=== PATIENT | male | born 1950 | race Caucasian/White ===

== ENCOUNTER 2017-01-25 01:14 | Day surgery (SDC) | payer MEDICARE, OTHER ==
[~2017-01-25] VITALS: Ht 177.8 cm; Wt 80.0 kg
[2017-01-25 01:17] VITALS: BP 185/104; PULSE 120; RESP 18; TEMP 97.6; O2SAT 100
[2017-01-25] MEDS ORDERED: SODIUM CHLORIDE 0.9% FLUSH 10 ML FLUSH IV FLUSH PRN (01:45)
[2017-01-25] MEDS ORDERED: GLUCAGON 1 MG/ML VIAL IV PUSH ONE (01:45)
--- NOTE | 2017-01-25 01:45 | PD ---
HPI Chief Complaint: Foreign Body Time Seen by Provider: 01:31 Travel History International Travel<30 days: No Contact w/Intl Traveler<30days: No Traveled to known affect area: No History of Present Illness HPI Patient is a 66-year-old male who about 8:00 tonight was eating a rib I, states that he didn't think he chewed its all the way through when he swallowed it got stuck, he states his this is happened to him before and it resolved spontaneously. Patient states been several years since he had a colonoscopy and endoscopy. Denies any chest pain shortness of breath abdominal pain nausea vomiting, he states anytime he tries to drink fluids states over about 5 seconds and then comes right back up. He states he started to get sore from vomiting up his own saliva as well. Symptoms since 8:00, constant, context as above, associated signs symptoms as above. PFSH Past Medical History Medical History: Denies Significant Hx Tetanus Vaccination: Unknown Influenza Vaccination: No Past Surgical History Surgical History: No Previous Surgery Social History Alcohol Use: No Tobacco Use: No Substance Use: No Allergies-Medications (Allergen,Severity, Reaction): Coded Allergies: No Known Drug Allergies (Verified Allergy, Unknown, 01/25/17) Reported Meds & Prescriptions Reported Meds & Active Scripts Active No Active Prescriptions or Reported Medications Review of Systems Except as stated in HPI: all other systems reviewed are Neg Physical Exam Narrative GENERAL: Well-developed well-nourished, comfortable but intermittently retching. SKIN: Focused skin assessment warm/dry. HEAD: Atraumatic. Normocephalic. EYES: Pupils equal and round. No scleral icterus. No injection or drainage. ENT: No nasal bleeding or discharge. Mucous membranes pink and moist. NECK: Trachea midline. No JVD. CARDIOVASCULAR: Regular rate and rhythm. No murmur appreciated. RESPIRATORY: No accessory muscle use. Clear to auscultation. Breath sounds equal bilaterally. GASTROINTESTINAL: Abdomen soft, non-tender, nondistended. Hepatic and splenic margins not palpable. MUSCULOSKELETAL: No obvious deformities. No clubbing. No cyanosis. No edema. NEUROLOGICAL: Awake and alert. No obvious cranial nerve deficits. Motor grossly within normal limits. Normal speech. PSYCHIATRIC: Appropriate mood and affect; insight and judgment normal. Data Data Last Documented VS Vital Signs Date Time Temp Pulse Resp B/P (MAP) Pulse Ox O2 Delivery O2 Flow Rate FiO2 11/25/17 03:45 72 20 148/93 (111) 95 Room Air 01/25/17 01:17 97.6 Orders Orders Glucagon Inj (Glucagon Inj) (01/25/17 01:45) Basic Metabolic Panel (Bmp) (01/25/17 01:31) Complete Blood Count With Diff (01/25/17 01:31) Iv Access Insert/Monitor (01/25/17 01:31) Ecg Monitoring (01/25/17 01:31) Oximetry (01/25/17 01:31) Sodium Chloride 0.9% Flush (Ns Flush) (01/25/17 01:45) Electrocardiogram (01/25/17 01:31) Chest, Single Ap (01/25/17 01:31) Glucagon Inj (Glucagon Inj) (01/25/17 03:15) Orphenadrine Inj (Norflex Inj) (01/25/17 03:15) Admit Order (Ed Use Only) (01/25/17 ) Labs Laboratory Tests Test 01/25/17 01:45 White Blood Count 11.7 TH/MM3 Red Blood Count 5.17 MIL/MM3 Hemoglobin 16.1 GM/DL Hematocrit 46.4 % Mean Corpuscular Volume 89.8 FL Mean Corpuscular Hemoglobin 31.1 PG Mean Corpuscular Hemoglobin Concent 34.6 % Red Cell Distribution Width 12.7 % Platelet Count 218 TH/MM3 Mean Platelet Volume 8.1 FL Neutrophils (%) (Auto) 84.1 % Lymphocytes (%) (Auto) 9.3 % Monocytes (%) (Auto) 4.7 % Eosinophils (%) (Auto) 1.3 % Basophils (%) (Auto) 0.6 % Neutrophils # (Auto) 9.8 TH/MM3 Lymphocytes # (Auto) 1.1 TH/MM3 Monocytes # (Auto) 0.5 TH/MM3 Eosinophils # (Auto) 0.1 TH/MM3 Basophils # (Auto) 0.1 TH/MM3 CBC Comment DIFF FINAL Differential Comment Blood Urea Nitrogen 19 MG/DL Creatinine 1.21 MG/DL Random Glucose 165 MG/DL Calcium Level 9.1 MG/DL Sodium Level 138 MEQ/L Potassium Level 4.0 MEQ/L Chloride Level 103 MEQ/L Carbon Dioxide Level 27.7 MEQ/L Anion Gap 7 MEQ/L Estimat Glomerular Filtration Rate 60 ML/MIN MDM Medical Decision Making Medical Screen Exam Complete: Yes Emergency Medical Condition: Yes Differential Diagnosis Food bolus impaction, achalasia, esophageal web. Narrative Course Patient roomed emerged Department 2 doses of IV glucagon were given as well as Norflex and still the patient is unable to tolerate by mouth liquids. Patient discussed with Drs. Hall for endoscopy. Diagnosis Primary Impression: Impacted foreign body in esophagus Qualified Codes: T18.108A - Unspecified foreign body in esophagus causing other injury, initial encounter Scripts No Active Prescriptions or Reported Meds Condition: Robert Reddy MD Jan 25, 2017 01:45
--- NOTE | 2017-01-25 02:08 | RADRPT ---
EXAM DATE/TIME: 01/25/2017 01:41 [facility] COMPARISON: No previous studies available for comparison. INDICATIONS : Possible foreign body. Food stuck in esophagus. MEDICAL HISTORY : None. SURGICAL HISTORY : None. ENCOUNTER: Initial ACUITY: 1 day PAIN SCORE: 0/10 LOCATION: Bilateral chest FINDINGS: A single view of the chest demonstrates the lungs to be symmetrically aerated without evidence of mas s, infiltrate or effusion. The cardiomediastinal contours are unremarkable. Osseous structures are intact. CONCLUSION: No acute disease. Steve So MD on January 25, 2017 at 2:06 Board Certified Radiologist. This report was verified electronically.
[2017-01-25 02:11] LABS: AUTOMATED NEUTROPHIL # 9.8 TH/MM3 (1.8-7.7); BASOPHIL # 0.1 TH/MM3 (0-0.2); BASOPHIL % 0.6 % (0.0-2.0); EOSINOPHIL # 0.1 TH/MM3 (0-0.4); EOSINOPHIL % 1.3 % (0.0-4.0); HEMATOCRIT 46.4 % (39.0-51.0); HEMO FLAGS DIFF FINAL; LYMPH % 9.3 % (9.0-44.0); LYMPHOCYTE # 1.1 TH/MM3 (1.0-4.8); MEAN CELL VOLUME 89.8 FL (80.0-100.0); MEAN CORPUSCULAR HEMOGLOBIN 31.1 PG (27.0-34.0); MEAN CORPUSCULAR HGB CONC 34.6 % (32.0-36.0); MONO % 4.7 % (0.0-8.0); NEUT % 84.1 % (16.0-70.0); PLATELET COUNT 218 TH/MM3 (150-450); RED BLOOD COUNT 5.17 MIL/MM3 (4.50-5.90); RED CELL DISTRIBUTION WIDTH 12.7 % (11.6-17.2); WHITE BLOOD COUNT 11.7 TH/MM3 (4.0-11.0)
[2017-01-25 02:13] VITALS: BP 184/103; PULSE 96; RESP 20; O2SAT 96
[2017-01-25 02:23] LABS: BICARBONATE 27.7 MEQ/L (21.0-32.0)
[2017-01-25] MEDS ORDERED: GLUCAGON 1 MG/ML VIAL IM ONE (03:15)
[2017-01-25] MEDS ORDERED: ORPHENADRINE INJ 60 MG/2 ML AMP IM ONE (03:15)
[2017-01-25 03:45] VITALS: BP 148/93; PULSE 72; RESP 20; O2SAT 95
[2017-01-25 06:14] VITALS: BP 160/97; PULSE 81; RESP 18; O2SAT 99
--- NOTE | 2017-01-25 10:03 | GIPROC ---
[facility] [address] [facility]. [facility], [address] EGD PROCEDURE REPORT EXAM DATE: 01/25/2017 PATIENT NAME: Jose Eduardo Bragg MR #: [id number] BIRTHDATE: 1950 ATTENDING: Leonides Hall MD ORDER #: [id number] SCIENTIFIC MANAGER: Analia Mcgee and Rashawn Mills STATUS: outpatient INDICATIONS: The patient is a 66 yr old male here for an EGD due to dysphagia and foreign body removal from esophagus PROCEDURE PERFORMED: EGD w/ fb removal MEDICATIONS: None and Per Anesthesia. TOPICAL ANESTHETIC: CONSENT: The patient understands the risks and benefits of the procedure and understands that these risks include, but are not limited to: sedation, allergic reaction, infection, perforation and/or bleeding. Alternative means of evaluation and treatment include, among others: physical exam, x-rays, and/or surgical intervention. The patient elects to proceed with this endoscopic procedure. medical equipment was checked for proper function. Hand hygiene and appropriate measures for infection prevention was taken. After the risks, benefits and alternatives of the procedure were thoroughly explained, Informed consent was verified, confirmed and timeout was successfully executed by the treatment team. The patient was anesthetized with topical anesthesia and the Pentax [id number] endoscope was introduced through the mouth and advanced to the gastroesophageal junction. The gastroscope was then slowly withdrawn and removed. ESOPHAGUS: LARGE AMOUNT OF IMPACTED MEAT AT THE DISTAL ESOPHAGUS. uNABLE TO PUSH INTO THE STOMACH. OVERTUBE PLACED AND REMOVED PIECEMEAL THROUGHTHE MOUTH. SIGIFICANT ESOPHAGITIS AND NARROWING OF THE DISTAL ESOPHAGUS. ADVERSE EVENTS: There were no complications. IMPRESSIONS: LARGE AMOUNT OF IMPACTED MEAT AT THE DISTAL ESOPHAGUS. uNABLE TO PUSH INTO THE STOMACH. OVERTUBE PLACED AND REMOVED PIECEMEAL THROUGHTHE MOUTH. SIGIFICANT ESOPHAGITIS AND NARROWING OF THE DISTAL ESOPHAGUS RECOMMENDATIONS: 1. Anti-reflux regimen 2. Start PPI PATIENT CONDITION: stable DISPOSITION: Home REPEAT EXAM: Return 1 week EGD with dilatation Leonides Hall MD eSigned: Leonides Hall MD 01/25/2017 10:02 AM cc:
--- NOTE | 2017-01-25 10:33 | MB ---
cc: Layne DATE OF CONSULTATION: 01/25/2017 PHYSICIAN: Dr. Leyva. REASON FOR CONSULTATION: Esophageal foreign body, acute dysphagia. HISTORY: Mr. Bragg is a 66-year-old gentleman who was eating at 08:00 p.m. rib steak at a local restaurant. He felt that something got stuck in the lower esophagus. That has not resolved since then he said he had a similar episode few years ago but that resolved spontaneously. He has had an endoscopy many years ago but he is unclear about the findings. Since this occurrence he has been unable to swallow his saliva. Finally decided to come into the hospital. PAST MEDICAL HISTORY None given. PAST SURGICAL HISTORY None given except for esophagogastroduodenoscopy, colonoscopy many years ago. SOCIAL HISTORY No tobacco, no alcohol. ALLERGIES None documented MEDICATIONS On admission none given. REVIEW OF SYSTEMS The patient has dysphagia secondary to esophageal foreign body. PHYSICAL EXAMINATION: IN GENERAL: Physical examination reveals a well-nourished man in no apparent distress. VITAL SIGNS: Vital signs: Stable. HEAD/NECK: Head and neck examination anicteric sclerae. CHEST: Bilateral air entry with rales. ABDOMEN: Abdomen is soft, nontender. No hepatosplenomegaly. Bowel sounds are present. CENTRAL NERVOUS SYSTEM: Exam is nonfocal. RECTUM: The rectal exam is deferred at this time. LABORATORY FINDINGS: labs reveal a white cell count of 11.7, hemoglobin 16, creatinine of 1.21 IMPRESSION Esophageal foreign body. RECOMMENDATIONS: 1. Keep n.p.o. at this time. 2. Esophagogastroduodenoscopy with EGD with general anesthesia recommended further recommendations to follow. Thank you for this referral. MD TONI Jose/gulshan /9:37 AM /10:23 AM
[2017-01-25] MEDS ORDERED: DO NOT ADM ANY ANTICOAGULANT DRUGS PRN (10:45)
[2017-01-25 11:00] VITALS: BP 138/76; PULSE 81; RESP 18; O2SAT 99
[2017-01-25] MEDS ORDERED: DEXAMETHASONE SOD PHOS 4 MG/ML VIAL IV ONE (12:00)
[2017-01-25] MEDS ORDERED: SUCCINYLCHOLINE CHLORIDE 100 MG/5 ML SYRINGE IV PUSH ONE (12:00)
[2017-01-25] MEDS ORDERED: ONDANSETRON HCL 4 MG/2 ML VIAL IV ONE (12:00)
[2017-01-25] MEDS ORDERED: LABETALOL HCL 100 MG/20 ML VIAL IV ONE (12:00)
[2017-01-25] MEDS ORDERED: PROPOFOL 200 MG/20 ML AMP IV ONE (12:00)
[2017-01-25] MEDS ORDERED: LIDOCAINE HCL 1% PF 5 ML SYRINGE OTHER ONE (12:00)
--- NOTE | 2017-01-25 14:35 | EKG ---
Date Performed: 01/25/2017 Time Performed: 02:20:12 PTAGE: 66 years EKG: Sinus rhythm PATTERN CONSISTENT WITH PULMONARY DISEASE INCOMPLETE RIGHT BUNDLE BRANCH BLOCK LEFT ANTERIOR FASCICU LAR BLOCK SEPTAL MYOCARDIAL INFARCTION ABNORMAL ECG NO PREVIOUS TRACING DOCTOR: Carlos Carlton Interpretating Date/Time 01/25/2017 14:34:15
[2017-01-26] MEDS ORDERED: PANTOPRAZOLE SOD 20 MG DELAYED RELEASE TAB PO SCH (09:00)
== END 2017-01-25 10:54 | disposition home or self-care (01) ==
LOC: NEPC 01:14 → HSDC 04:31
PROVIDERS: ATTEND Internal Medicine Gastroenterology
DX: T18.128A Food in esophagus causing other injury, initial encounter (principal); R13.10 Dysphagia, unspecified; R94.31 Abnormal electrocardiogram [ECG] [EKG]
CPT/HCPCS: 00740; 43247; 71010; 80048; 85025; 93005; 96372; 96374; 99285; J0330; J1100; J1610; J2360; J2405